=== PATIENT | male | born 1965 | race Caucasian/White ===

== ENCOUNTER 2018-04-18 14:37 | Emergency (ER) | payer OTHER ==
[2018-04-18] MEDS ORDERED: Succinylcholine 200 MG/10 ML MDV IV ONE (14:38)
[2018-04-18] MEDS ORDERED: Rocuronium 50 MG/5 ML Vial IV ONE (14:38)
[2018-04-18] MEDS ORDERED: Propofol 200 MG/20 ML SDV IV ONE (14:38)
[2018-04-18] MEDS ORDERED: Diphtheria,Pertussis(Acell),Tetanus Vaccine 0.5 ML SDV IM ONE (14:47)
[2018-04-18] MEDS ORDERED: Ondansetron 4 MG/2 ML SDV IV ONE (14:47)
[2018-04-18] MEDS ORDERED: Sodium Chloride 0.9% 1,000 ML IV ONE (14:47)
[2018-04-18] MEDS ORDERED: Sodium Chloride 0.9% 10 ML Syringe FLUSH PRN (14:47)
[2018-04-18] MEDS ORDERED: Iopamidol 612 MG/ML 100 ML Bottle IVPUSH ONE (14:50)
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
[2018-04-18 15:31] LABS: CHLORIDE,CL 106 mmol/L (101-111); SODIUM,NA 138 mmol/L (135-145)
[2018-04-18 15:38] LABS: ACETAMINOPHEN < 10
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
--- NOTE | 2018-04-20 13:57 | EKG ---
04/18/2018- JAMEY CAVANAUGH - FINDINGS: EKG shows a heart rate of 52 beats per minute, sinus bradycardia. [facility] /[id number]
== END 2018-04-18 17:00 ==
LOC: EDUNIT# → EDBD → DL.ED 14:37
DX: S06.309A Unspecified focal traumatic brain injury with loss of consciousness of unspecified duration, initial encounter (principal); R04.0 Epistaxis; H92.22 Otorrhagia, left ear; F17.210 Nicotine dependence, cigarettes, uncomplicated; V23.4XXA Motorcycle driver injured in collision with car, pick-up truck or van in traffic accident, initial encounter
CPT/HCPCS: 31500; 36415; 43752; 51703; 70450; 71260; 72125; 74177; 80053; 80305; 81001; 82150; 82962; 83605; 83690; 83735; 84484; 85025; 85610; 85730; 86850; 86900; 86901; 90471; 90715; 93005; 96360; 96361; 96374; 99291; 99292; G0480; J0330; J2405; J2704; J7030; Q9967